=== PATIENT | female | born 1975 | race African-American/Black ===

== ENCOUNTER 2024-09-19 20:07 | Emergency (ER) | payer OTHER ==
[~2024-09-19] VITALS: Ht 162.6 cm; Wt 83.0 kg
[2024-09-19] MEDS ORDERED: AMLODIPINE BESYL5 MG PO (20:48)
[2024-09-19 21:57] VITALS: BP 148/86
== END 2024-09-19 22:01 | disposition home or self-care (01) | DRG 563 ==
LOC: ED 20:07
DX: S46.911A Strain of unspecified muscle, fascia and tendon at shoulder and upper arm level, right arm, initial encounter (principal); X58.XXXA Exposure to other specified factors, initial encounter; Y93.B2 Activity, push-ups, pull-ups, sit-ups; Y99.1 Military activity